=== PATIENT | female | born 1950 | race Caucasian/White ===

== ENCOUNTER 2022-03-12 07:56 | Inpatient (IN) | payer MEDICARE ==
[2022-03-12] MEDS ORDERED: Acetaminophen 500 MG Tab PO ONE (08:00)
[2022-03-12] MEDS ORDERED: Dextrose 5%-Lactated Ringers 1,000 ML IV SCH (08:15)
[2022-03-12] MEDS ORDERED: ceFAZolin 2 GM in Sodium Chloride 0.9% 50 ML IV ONE (08:30)
[2022-03-12] MEDS ORDERED: Ketamine 500 MG/5 ML MDV IV SCH (09:45)
[2022-03-12] MEDS ORDERED: Ketamine 13 MG in Sodium Chloride 0.9% 19.87 ML IV SCH (09:45)
[2022-03-12] MEDS ORDERED: Neostigmine Methylsulfate 1 MG/ML 5 ML Syringe ONE (10:02)
[2022-03-12] MEDS ORDERED: Ondansetron 4 MG/2 ML SDV ONE (10:02)
[2022-03-12] MEDS ORDERED: Dexamethasone 4 MG/ML SDV ONE (10:02)
[2022-03-12] MEDS ORDERED: Glycopyrrolate 0.2 MG/ML 5 ML MDV ONE (10:02)
[2022-03-12] MEDS ORDERED: fentaNYL 250 MCG/5 ML SDV ONE (10:02)
[2022-03-12] MEDS ORDERED: Propofol 200 MG/20 ML SDV ONE (10:02)
[2022-03-12] MEDS ORDERED: Rocuronium 50 MG/5 ML Vial ONE (10:02)
[2022-03-12] MEDS ORDERED: Ketoconazole 2% Crm 30 GM Tube ONE (11:34)
[2022-03-12] MEDS ORDERED: Linezolid 600 MG/300 ML Premix Bag IRR ONE (12:16)
[2022-03-12] MEDS ORDERED: HYDROmorphone/Normal Saline 6 MG/30 ML PCA Vial IV PRN (13:15)
[2022-03-12] MEDS ORDERED: diphenhydrAMINE 50 MG/ML SDV IVPUSH PRN (13:15)
[2022-03-12] MEDS ORDERED: Ondansetron 4 MG/2 ML SDV IVPUSH PRN ×2 (13:15→14:17)
[2022-03-12] MEDS ORDERED: Naloxone 0.4 MG/ML SDV IVPUSH PRN (13:15)
[2022-03-12] MEDS ORDERED: diphenhydrAMINE 25 MG Cap PO PRN (13:15)
[2022-03-12] MEDS ORDERED: Naloxone 0.4 MG/ML SDV IV PRN (14:00)
[2022-03-12] MEDS ORDERED: hydrOXYzine HCL 100 MG/2 ML SDV IM PRN (14:17)
[2022-03-12] MEDS: Dextrose 5%-Lactated Ringers 1,000 ML IV SCH (14:25)
[2022-03-12] MEDS: Acetaminophen 325 MG Tab PO SCH ×2 (15:15→21:28)
[2022-03-12] MEDS: Ibuprofen 400 MG Tab PO SCH (17:38)
[2022-03-12] MEDS: ceFAZolin 2 GM in Sodium Chloride 0.9% 50 ML IV SCH (17:39)
[2022-03-12] MEDS: atorvaSTATin 10 MG Tab PO SCH (21:27)
[2022-03-13] MEDS: Ibuprofen 400 MG Tab PO SCH ×5 (00:56→23:54)
[2022-03-13] MEDS: Dextrose 5%-Lactated Ringers 1,000 ML IV SCH (00:58)
[2022-03-13] MEDS: ceFAZolin 2 GM in Sodium Chloride 0.9% 50 ML IV SCH ×2 (01:02→09:44)
[2022-03-13] MEDS: Acetaminophen 325 MG Tab PO SCH ×4 (05:03→21:44)
[2022-03-13] MEDS ORDERED: HYDROmorphone 2 MG Tab PO PRN (08:04)
[2022-03-13] MEDS: Chlorthalidone 25 MG Tab PO SCH (09:45)
[2022-03-13] MEDS: Cetirizine 10 MG Tab PO SCH (09:45)
[2022-03-13] MEDS: atorvaSTATin 10 MG Tab PO SCH (21:45)
[2022-03-14] MEDS: Acetaminophen 325 MG Tab PO SCH ×2 (05:00→09:25)
[2022-03-14] MEDS: Ibuprofen 400 MG Tab PO SCH (05:00)
[2022-03-14] MEDS: Cetirizine 10 MG Tab PO SCH (09:25)
[2022-03-14] MEDS: Chlorthalidone 25 MG Tab PO SCH (09:25)
== END 2022-03-14 11:00 | disposition home or self-care (01) | DRG 580 ==
LOC: JP.SDS 07:56 → JP.MS 07:56 → UNDOADMIN 07:56 → JP.SDSSCHI 07:56 → EDSTATUS 12:15 → JP.MS 13:56
PROVIDERS: ADMIT Surgery; ATTEND Surgery
PROC: 0HTU0ZZ Resection of Left Breast, Open Approach (ICD-10-PCS; principal; 2022-03-12)
PROC: 07B60ZZ Excision of Left Axillary Lymphatic, Open Approach (ICD-10-PCS; 2022-03-12)
DX: C50.312 Malignant neoplasm of lower-inner quadrant of left female breast (principal); C77.3 Secondary and unspecified malignant neoplasm of axilla and upper limb lymph nodes; I10 Essential (primary) hypertension; E55.9 Vitamin D deficiency, unspecified; L82.1 Other seborrheic keratosis; E78.2 Mixed hyperlipidemia; Z87.891 Personal history of nicotine dependence; Z90.49 Acquired absence of other specified parts of digestive tract; Z98.41 Cataract extraction status, right eye; Z98.42 Cataract extraction status, left eye; Z79.899 Other long term (current) drug therapy; Z17.0 Estrogen receptor positive status [ER+]
CPT/HCPCS: 36415; 86300; 88305; 88309; 93005; A9270-GY; J0690; J1100; J1170; J2020; J2405; J2704; J2710; J3010; J3490; J7121

== ENCOUNTER 2022-04-12 08:34 | Day surgery (SDC) | payer MEDICARE ==
[~2022-04-12 08:34] MED LIST: Bupivacaine 0.5% 50 ML MDV ONE; Lidocaine 1% with EPINEPHrine 1:100,000 50 ML MDV ONE; Midazolam 1 MG/ML 2 ML SDV ONE; Propofol 200 MG/20 ML SDV ONE; fentaNYL 100 MCG/2 ML SDV ONE
[2022-04-12] MEDS ORDERED: Acetaminophen 500 MG Tab PO ONE (09:00)
[2022-04-12] MEDS ORDERED: Dextrose 5%-Lactated Ringers 1,000 ML IV SCH (09:30)
[2022-04-12] MEDS ORDERED: Linezolid 600 MG in Premix Bag 1 BAG IV ONE (10:00)
== END 2022-04-12 12:25 | disposition home or self-care (01) ==
LOC: JP.SDS 08:34
PROVIDERS: ATTEND Surgery
DX: C50.919 Malignant neoplasm of unspecified site of unspecified female breast (principal); I10 Essential (primary) hypertension
CPT/HCPCS: 36561; 77001; A9270; C1788; J1642; J2020; J2250; J2704; J3010; J3490; J7121

== ENCOUNTER 2024-02-19 08:14 | Day surgery (SDC) | payer MEDICARE ==
[~2024-02-19 08:14] MED LIST changes: -Bupivacaine 0.5% 50 ML MDV ONE; -Lidocaine 1% with EPINEPHrine 1:100,000 50 ML MDV ONE; -Midazolam 1 MG/ML 2 ML SDV ONE; -fentaNYL 100 MCG/2 ML SDV ONE; +fentaNYL 50 MCG/ML SDV ONE
[2024-02-19] MEDS: Sodium Chloride 0.9% 1,000 ML IV SCH (08:57)
[2024-02-19] MEDS ORDERED: Sodium Chloride 0.9% 1,000 ML IV SCH (10:00)
== END 2024-02-19 10:27 | disposition home or self-care (01) ==
LOC: JP.SDS 08:14
PROVIDERS: ATTEND Surgery
DX: Z12.11 Encounter for screening for malignant neoplasm of colon (principal); I10 Essential (primary) hypertension
CPT/HCPCS: G0121; J1642; J2704; J3010; J7030; 00812-QZ